=== PATIENT | female | born 1980 | race Caucasian/White ===

== ENCOUNTER 2022-06-12 22:13 | Emergency (ER) | payer OTHER ==
[2022-06-12 23:25] VITALS: BP 121/80
--- NOTE | 2022-06-12 23:32 | ED Physician Documentation ---
History of Present Illness - Stated complaint Stated Complaint: LT ARM LUMP - Chief complaint Chief Complaint: Wound - History obtained from History obtained from: Patient - Additonal information Additional information: The patient comes to the emergency department chief complaint of "I think I have a blood clot in the back of my arm". The patient states she has had a lump in her posterior left upper arm for the last 6 months. She states that she did not have any injury or other triggering event when she first noticed it. The patient after some degree of questioning finally states that she has not noticed any swelling in the arm. She states that she has begun to feel as though the area around the lump is warm and she keeps getting shooting pains going down her left arm full-length. She is also had pains shooting down through her left axilla and around her left breast. She states that she thought may be the underwire bra that she was using was irritating the area, so she stopped wearing an underwire bra. She does note that that helped the pain a little, but she still gets the symptoms. She denies any associated symptoms. No nausea, shortness of breath, diaphoresis, or lightheadedness. The patient states that the pains come on randomly and are not associated with exertion. She states that she has previously worked out a lot and train for marathons, and that she has been going through a very vigorous process of unpacking from a move recently. She states she never had any issue with chest pain on exertion with her exercise regimen. She does note that she has not actually been exercising as much lately because of her busyness with the move. She states that she has been noticing the pain around her chest for the last couple of months. She does note that she has a history of multiple cysts including in her breasts, and has had to have them removed. Because of the disfigurement, she did get reconstructive surgery with implants in her breasts. She does not know if this is related to the pain also. The patient has no history of smoking, diabetes, hypertension, hyperlipidemia, or cardiac disease. She has no family history of coronary artery disease. Patient states She has been under a lot of stress because of a couple of moves across the country in the last year and because of a large amount of damage that was done to her stuff in the midst of the move. The patient states that she came in [facility] in the middle of the night because she Was having pain around the lump and noticed that there was a blue berry overlying it, so she called the nurse hotline and they told her that she might have a blood clot. The patient has no history of DVT or PE. No swelling in her legs. No cancer. She is not a smoker. No other complaints at this time. Review of Systems Constitutional: reports: Reviewed and negative Eyes: reports: Reviewed and negative Ears: reports: Reviewed and negative Nose: reports: Reviewed and negative Throat: reports: Reviewed and negative Cardiac: reports: Chest pain / pressure Respiratory: reports: Reviewed and negative GI: reports: Reviewed and negative : reports: Reviewed and negative Skin: reports: Reviewed and negative Musculoskeletal: reports: Reviewed and negative Neurologic: reports: Reviewed and negative Psychiatric: reports: Reviewed and negative Endocrine: reports: Reviewed and negative Immunocompromised: reports: Reviewed and negative PD PAST MEDICAL HISTORY - Allergies Allergies/Adverse Reactions: Allergies Allergy/AdvReac Type Severity Reaction Status Date / Time No Known Drug Allergies Allergy Verified 06/12/22 22:18 PD ED PE NORMAL - Vitals Vital signs reviewed: Yes - General General: Alert and oriented X 3, Well developed/nourished, Other (The patient appears anxious and is speaking somewhat rapidly. Otherwise in no apparent distress.) - HEENT HEENT: Atraumatic, PERRL, EOMI, Moist mucous membranes - Neck Neck: Supple, no meningeal sign - Cardiac Cardiac: RRR, No murmur, Strong equal pulses - Respiratory Respiratory: No respiratory distress, Clear bilaterally - Abdomen Abdomen: Soft, Non tender, Non distended - Derm Derm: Normal color, Warm and dry, No rash, Other (Tiny blue berry overlying the posterior left upper arm mass noted below. No induration, fluctuance, or edema. No erythema.) - Extremities Extremities: No deformity, No edema, Other (A very tiny, mobile, well- circumscribed cystic mass of approximately 4 mm at most is located in the soft tissues superficially about midway between the elbow and shoulder on the left. There is no fluctuance, induration, erythema, or edema, either locally or distally in Left upper extremity) - Neuro Neuro: Alert and oriented X 3 - Psych Psych: Normal mood, Normal affect PD ED PE EXPANDED - Free text exam Free text exam: No axillary masses on the left. No chest wall masses or tenderness. Results - Vitals Vitals: Vital Signs - 24 hr 06/12/22 06/12/22 22:18 23:24 Temperature 36.5 C Heart Rate 64 49 L Respiratory 16 16 Rate Blood Pressure 140/64 H 121/80 O2 Saturation 100 99 Oxygen O2 Source Room air - EKG (time done) 2306 Rate: Rate (enter#) (52) Rhythm: NSR Covert: Normal Intervals: Normal MN QRS: Normal Ischemia: Normal ST segments Compare to prior EKG: Old EKG unavailable Computer interpretation: Agree with computer PD Medical Decision Making - ED course Complexity details: reviewed results, re-evaluated patient, considered differential, d/w patient ED course: The patient was quite anxious, and fixated on the idea of possible blood clot in the color change and warmth over the cyst. I discussed with her that the very faint, tiny blue berry over the cyst is not in any way a sign of a more emergent condition. Furthermore, there is nothing to indicate a blood clot at this time. In fact there is no evidence or of any serious or emergent condition. I have spoken with this patient at great length. She is very low risk for coronary artery disease or venous thromboembolism. She does not have any concerning associated symptoms with her chest pain, and has been able to exert herself to great length with absolutely no symptoms whatsoever. I discussed with her that given her history of multiple cyst removals, then reconstruction, it is possible that she has some scar tissue that is at least in part causing the pain, not to mention the weight of the implants. The shooting pain she is describing in her arms sound more like a radiculopathy or impingement, coming from either the neck or the shoulder. The patient is persistently anxious and I perceive unsatisfied with these explanations. I have advised her that other than to get an EKG tonight, which has been normal, there is really no emergent work-up indicated for her chronic and ongoing symptoms. I have advised her to follow-up with [facility] to discuss whether a stress test would be appropriate. If she feels that the cyst is greatly bothering her, then she may speak with her primary care physician about having the cyst removed, either by them or by referral to dermatology or general surgery. We have discussed the usual indications for return. Departure - Departure Disposition: 01 Home, Self Care Clinical Impression: Cyst of soft tissue Chest pain Qualifiers: Chest pain type: unspecified Qualified Code(s): R07.9 - Chest pain, unspecified Condition: Stable Instructions: ED Chest Pain NonCardiac Comments: Your EKG looks great. The pain you are describing is not typical of cardiac chest pain. Additionally, you were very low risk for underlying coronary artery disease, and there are no associated symptoms to raise concern for this, as we have discussed. As far as other potentially serious or emergent conditions, most would be associated either with progressive respiratory symptoms, or with acute, unmistakable features pointing to an emergent condition. It is not clear exactly why you continue to have this ongoing pain in both your chest and your arm. The shooting pains going down your arm are more consistent with a nerve root issue coming from your neck, or nerve impingement coming through the structures of the shoulder. As far as the tiny mass on the back of your arm, this feels most consistent with a cyst. It is in the superficial soft tissue, either in the fat or the muscle surface in that portion of your arm. Palpably, it is no more than 4 mm in size, well-circumscribed, and is mobile. It is not in the vicinity of any major blood vessels, particularly the deep ones where we would be looking for a blood clot of emergent proportions. In general, this will cause progressive pain and swelling, but the clot itself will not be palpable. All of these factors make a benign process overwhelmingly likely. The tiny area of discoloration over the area is not indicative of a serious or emergent process. If you feel that this cyst is particularly bothersome, you may talk to your doctor about having it removed, either in the office, or by referral to a surgeon or certified orthoptist. Discharge Date/Time: 06/12/22 23:41
== END 2022-06-12 23:41 | disposition home or self-care (01) ==
LOC: ED 22:13
DX: R07.9 Chest pain, unspecified (principal); M79.89 Other specified soft tissue disorders
CPT/HCPCS: 93005; 99282; 99283

== ENCOUNTER 2023-03-29 20:02 | Outpatient (CLI) | payer OTHER ==
--- NOTE | 2023-03-30 11:31 | XRAY Report ---
PROCEDURE: Cervical Spine 2 View INDICATIONS: CERVICAL SPASM TECHNIQUE: 4 view(s) of the cervical spine were acquired. COMPARISON: None. FINDINGS: Bones: No fractures or dislocations to the T1 level. Straightening of the normal cervical lordosis. Mild degenerative changes of the cervical spine with disc height loss and degenerative endplate ceja es, most pronounced at C5-C6. The lateral masses of C1 appear intact on the odontoid view. No suspi cious bony lesions. Soft tissues: No prevertebral soft tissue swelling. IMPRESSION: Mild degenerative changes of the cervical spine. Reviewed by: Maurizio Macias MD on 03/30/2023 11:29 AM PST Approved by: aMurizio Macias MD on 03/30/2023 11:29 AM PST Station ID: [id number]
== END 2023-03-29 20:03 | disposition home or self-care (01) ==
LOC: DI 20:02
PROVIDERS: ATTEND Family Medicine
DX: M62.838 Other muscle spasm (principal); M47.812 Spondylosis without myelopathy or radiculopathy, cervical region

== ENCOUNTER 2023-04-19 08:02 | Outpatient (CLI) | payer OTHER ==
--- NOTE | 2023-04-19 11:39 | MRI Report ---
PROCEDURE: MRI brain without contrast INDICATIONS: 43-year-old female with headache TECHNIQUE: Multiplanar multisequential MR images of the brain were obtained without contrast COMPARISON: None FINDINGS: CSF Spaces: Basal cisterns are patent. No extra-axial fluid collections. Ventricles are normal in size and shape. Brain: No intracranial masses or hemorrhage. Thurman/white matter interface is normal. Brainstem appe ars normal. Diffusion-weighted images shows no evidence of acute infarct. Normal intravascular flow voids are present. Skull and face: Calvarium has normal marrow signal. Orbits appear normal. Sinuses: Sinuses and mastoids are clear. IMPRESSION: Unremarkable MRI of the brain Reviewed by: Jace Carter MD on 04/19/2023 10:37 AM [facility] Approved by: Jace Carter MD on 04/19/2023 10:37 AM [facility] Station ID: [id number]
== END 2023-04-19 08:03 | disposition home or self-care (01) ==
LOC: DI 08:02
PROVIDERS: ATTEND Nurse Practitioner Family
DX: R51.9 Headache, unspecified (principal)

== ENCOUNTER 2023-04-27 20:09 | Emergency (ER) | payer OTHER ==
[2023-04-27 20:26] VITALS: BP 137/73; O2SAT 100
--- NOTE | 2023-04-27 21:06 | ED Physician Documentation ---
History of Present Illness - Stated complaint Stated Complaint: COHEN,NECK PX - Chief complaint Chief Complaint: Heent - History obtained from History obtained from: Patient, Family () - Additonal information Additional information: 43yF with pmh chronic headaches and chronic neck pain p/w neck pain, headache since february and 2-3 weeks of sore throat and BL ear fullness. 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 patient denies fever, cough, nasal congestion or other uri symptoms. denies sick contacts. 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, Breast implants, Other - Present Medications Home Medications: Ambulatory Orders Medication Instructions Recorded Confirmed Tizanidine HCl [Zanaflex] 2 mg PO TID PRN 04/27/23 04/27/23 - Allergies Allergies/Adverse Reactions: Allergies Allergy/AdvReac Type Severity Reaction Status Date / Time No Known Drug Allergies Allergy Verified 04/27/23 20:25 - Social History Does the pt smoke?: No Smoking Status: Never smoker Does the pt drink ETOH?: No Does the pt have substance abuse?: No - Immunizations Immunizations are current?: Yes PD ED PE NORMAL - Vitals Vital signs reviewed: Yes - General General: Alert and oriented X 3, No acute distress, Well developed/nourished - HEENT HEENT: Atraumatic, PERRL, EOMI, Ears normal, Moist mucous membranes, Pharynx benign, Other (BL nasal congestion and erythema to nasal turbinates) - Neck Neck: Supple, no meningeal sign, No bony TTP - Derm Derm: Normal color, Warm and dry - Extremities Extremities: No deformity - Neuro Neuro: No motor deficit, No sensory deficit - Psych Psych: Other (tearful affect) Results - Vitals Vitals: Vital Signs - 24 hr 04/27/23 20:18 Temperature 36.4 C L Heart Rate 51 L Respiratory 16 Rate Blood Pressure 137/73 H O2 Saturation 100 Oxygen O2 Source Room air PD Medical Decision Making - ED course ED course: 43yF with pmh chronic neck/back pain p/w multiple medical symptoms including sore throat/ear pain. patient has normal exam but is persistently concerned about her symptoms, declining meds because she doesn't "want to mask symptoms". Referal to ENT provided and RVP sent with suspicion she is suffering from viral URI. Also suspect patient has symptoms concerning for depression therefore recommend follow up with outpatient mental health and her pcm. return precautions given. Departure - Departure Disposition: 01 Home, Self Care Clinical Impression: Throat pain, Headache, Neck pain, Ear pain Condition: Stable Instructions: ED Depression, ED Headache Tension Follow-Up: Santi Looney, [Physician No Access] - Comments: You were seen in the emergency department for multiple symptoms including headache, neck pain, sore throat and ear pain. A nose swab for respiratory viruses was done and will be available for results on your patient health portal tomorrow. A referral was provided to ENT. I am also concerned you may be suffering from some symptoms of depression given that you have been under a tremendous amount of stress. Please consider seeking out a mental health counselor and also talk with your doctor about medication and non-medication options for treatment of depression. Please follow-up with your primary care provider and return to the emergency department if you have any new or worsening symptoms or other concerns. Forms: PCP List
[2023-04-27 22:30] LABS: B. PARAPERTUSSIS- RESP PCR PAN NOT DETECTED; B. PERTUSSIS- RESP PCR PANEL NOT DETECTED; C. PNEUMONIAE- RESP PCR PANEL NOT DETECTED; CORONAVIRUS 229E-RESP PCR NOT DETECTED; CORONAVIRUS HKU1-RESP PCR NOT DETECTED; CORONAVIRUS NL63-RESP PCR NOT DETECTED; CORONAVIRUS OC43-RESP PCR NOT DETECTED; HUMAN METAPNEUMOVIRUS NOT DETECTED; INFLUENZA A- RESP PCR PANEL NOT DETECTED; INFLUENZA B - RESP PCR PANEL NOT DETECTED; M. PNEUMONIAE- RESP PCR PANEL NOT DETECTED; PARAINFLUENZA VIRUS 1 NOT DETECTED; PARAINFLUENZA VIRUS 2 NOT DETECTED; PARAINFLUENZA VIRUS 3 NOT DETECTED; PARAINFLUENZA VIRUS 4 NOT DETECTED; RHINOVIRUS/ENTEROVIRUS NOT DETECTED; RSV- RESP PCR PANEL NOT DETECTED; SARS-CoV-2 -RESP PCR PANEL NOT DETECTED
== END 2023-04-27 21:35 | disposition home or self-care (01) ==
LOC: ED 20:09
DX: R51.9 Headache, unspecified (principal); M54.2 Cervicalgia; G89.29 Other chronic pain; J02.9 Acute pharyngitis, unspecified; H92.09 Otalgia, unspecified ear
CPT/HCPCS: 87633; 99283

== ENCOUNTER 2023-09-15 22:35 | Emergency (ER) | payer OTHER ==
[2023-09-15] MEDS: KETOROLAC 30 MG/ML VIAL IM STA (23:42)
--- NOTE | 2023-09-16 01:09 | Ultrasound Report ---
PROCEDURE: Duplex Ext Veins Right INDICATIONS: RLE pain TECHNIQUE: Real-time imaging, as well as color and pulse Doppler interrogation, were performed of the lower extr emity deep veins from the inguinal ligament to the popliteal fossa. Attempted visualization of the ca lf veins was performed. COMPARISON: None. FINDINGS: The deep veins are normally compressible, and free of intraluminal thrombus. Color and pu lse Doppler demonstrate normal phasic intraluminal flow. There is normal augmentation response to di stal compression maneuver. IMPRESSION: No deep venous thrombosis of the visualized lower extremity. Reviewed by: Medina Mac MD on 09/16/2023 1:08 AM PDT Approved by: Medina Mac MD on 09/16/2023 1:08 AM PDT Station ID: [id number]
--- NOTE | 2023-09-16 01:39 | ED Physician Documentation ---
History of Present Illness - Stated complaint Stated Complaint: R LEG PX - Chief complaint Chief Complaint: Ext Problem - History obtained from History obtained from: Patient - Additonal information Additional information: 43yF fairly active p/w R calf pain that is severe, constant, aching, worse with movement. never had pain like this before. patient not on hormones, no prior Hx clots, no bedrest, recent travel. she was sent in by rigging up man line for DVT study. 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, Breast implants, Other - Present Medications Home Medications: Ambulatory Orders Medication Instructions Recorded Confirmed Multivitamin 1 tab PO DAILY 09/15/23 09/15/23 - Allergies Allergies/Adverse Reactions: Allergies Allergy/AdvReac Type Severity Reaction Status Date / Time No Known Drug Allergies Allergy Verified 09/15/23 22:43 - Social History Does the pt smoke?: No Smoking Status: Never smoker Does the pt drink ETOH?: No Does the pt have substance abuse?: No - Immunizations Immunizations are current?: Yes - POLST Patient has POLST: No PD ED PE NORMAL - Vitals Vital signs reviewed: Yes - General General: Alert and oriented X 3, No acute distress, Well developed/nourished - HEENT HEENT: Atraumatic, PERRL, EOMI - Derm Derm: Normal color, Warm and dry, No rash - Extremities Extremities: No deformity, Normal ROM s pain, No edema, Other (R calf ttp. L calf nontender. CSM intact BL LE) Results - Vitals Vitals: Vital Signs - 24 hr 09/15/23 09/16/23 09/16/23 22:43 00:13 01:56 Temperature 36.6 C 36.4 C L 36.5 C Heart Rate 60 56 L 60 Respiratory 16 16 16 Rate Blood Pressure 147/73 H 125/80 106/75 O2 Saturation 99 98 100 Oxygen O2 Source Room air PD Medical Decision Making - ED course ED course: 43yF p/w R calf pain. dvt study negative on ultrasound. advised outpatient f/u with pcp. IM toradol improved the pain. return precautions given. she can have repeat u/s in 14 days if no improvement. Departure - Departure Disposition: 01 Home, Self Care Clinical Impression: Pain in extremity Condition: Stable Instructions: ED RICE Comments: You were seen in the emergency department for Evaluation of leg pain. You do not have a blood clot in the leg. Please follow-up with your primary care provider and return to the emergency department if you have any new or worsening symptoms or other concerns. Forms: PCP List Discharge Date/Time: 09/16/23 01:57
[2023-09-16 01:58] VITALS: BP 106/75; O2SAT 100
== END 2023-09-16 01:57 | disposition home or self-care (01) ==
LOC: ED 22:35
DX: M79.661 Pain in right lower leg (principal); Z98.82 Breast implant status
CPT/HCPCS: 96372; 99284